=== PATIENT | male | born 1990 | race Caucasian/White ===

== ENCOUNTER 2024-07-05 22:53 | Emergency (ER) | payer SELFPAY ==
[2024-07-06] MEDS ORDERED: Ibuprofen 200 MG TAB ONE (00:04)
== END 2024-07-06 00:14 | disposition home or self-care (01) ==
LOC: ERS 22:53
DX: S89.92XA Unspecified injury of left lower leg, initial encounter (principal); F17.210 Nicotine dependence, cigarettes, uncomplicated; W17.89XA Other fall from one level to another, initial encounter
CPT/HCPCS: 99283